=== PATIENT | male | born 1990 | race Caucasian/White ===

== ENCOUNTER 2018-01-28 09:08 | Inpatient (IN) | payer BC ==
[2018-01-28 09:15] VITALS: RESP 16
--- NOTE | 2018-01-28 10:27 | ED ---
Psych HPI - General Chief Complaint: Psychiatric Symptoms Stated Complaint: Mental Health Time Seen by Provider: 01/28/18 09:15 Source: patient, RN notes reviewed Mode of arrival: ambulatory Limitations: no limitations - History of Present Illness Initial Comments: This is a 27-year-old male presents emergency Department with chief complaint of depression, suicidal ideation. Patient states that he's been having ongoing depression more recently having suicidal ideation. He states that he went scheduled appointment with a counselor but never followed through. He has never express his feelings to anyone other than his . Patient is brought to emergency department by his for evaluation. Patient denies any illicit drug use no alcohol abuse. He does use alcohol on occasion. Patient has no physical complaints. Patient does not take any psychiatric medications and has NO KNOWN DRUG ALLERGIES. - Related Data Home Medications Medication Instructions Recorded Confirmed No Known Home Medications [No 01/28/18 01/28/18 Known Home Medications] Allergies Allergy/AdvReac Type Severity Reaction Status Date / Time No Known Allergies Allergy Verified 01/28/18 09:46 Review of Systems ROS Statement: Those systems with pertinent positive or pertinent negative responses have been documented in the HPI. ROS Other: All systems not noted in ROS Statement are negative. Past Medical History Past Medical History: No Reported History History of Any Multi-Drug Resistant Organisms: None Reported Past Surgical History: No Surgical Hx Reported Past Psychological History: No Psychological Hx Reported Smoking Status: Current every day smoker Past Alcohol Use History: Occasional Past Drug Use History: None Reported General Exam Limitations: no limitations General appearance: alert, in no apparent distress Head exam: Present: atraumatic, normocephalic, normal inspection Eye exam: Present: normal appearance, PERRL, EOMI. Absent: scleral icterus, conjunctival injection, periorbital swelling ENT exam: Present: normal exam, normal oropharynx, mucous membranes moist Neck exam: Present: normal inspection, full ROM. Absent: tenderness, meningismus, lymphadenopathy Respiratory exam: Present: normal lung sounds bilaterally. Absent: respiratory distress, wheezes, rales, rhonchi, stridor Cardiovascular Exam: Present: regular rate, normal rhythm, normal heart sounds. Absent: systolic murmur, diastolic murmur, rubs, gallop, clicks GI/Abdominal exam: Present: soft, normal bowel sounds. Absent: distended, tenderness, guarding, rebound, rigid Neurological exam: Present: alert, oriented X3, CN II-XII intact Psychiatric exam: Present: flat affect, other (Patient is tearful) Skin exam: Present: warm, dry, intact, normal color. Absent: rash Course Vital Signs 01/28/18 09:13 Temperature 98.3 F Pulse Rate 83 Respiratory 16 Rate Blood Pressure 145/72 O2 Sat by Pulse 98 Oximetry Disposition Clinical Impression: Depression, Suicidal ideation Disposition: ADMITTED IP TO THIS HOSP Referrals: None,Stated [Primary Care Provider] - 1-2 days
[2018-01-28] MEDS: NICOTINE 14MG/24HR PATCH TRANSDERM SCH (13:09)
[2018-01-28] MEDS ORDERED: MAGNESIUM HYDROXIDE 2,400 MG/10 ML CUP PO PRN (13:25)
[2018-01-28] MEDS ORDERED: ACETAMINOPHEN TAB 325 MG TAB PO PRN (13:25)
[2018-01-28] MEDS ORDERED: MAG HYDROX/AL HYDROX/SIMETH 30 ML CUP PO PRN (13:25)
[2018-01-28 13:49] VITALS: BMI 28.8
--- NOTE | 2018-01-28 21:58 | P.MDCNMH ---
History of Present Illness H&P Date: 01/28/18 Chief Complaint: medical management 27-year-old male with no significant past medical history presented to the hospital for psychiatric evaluation accompanied by his . Patient admits to no mental health problems , however he's been feeling depression in the only expressed dose emotions to his . Recently he has been having suicidal ideation without any plan. He admits to 1 attempts when he was teenager where he overdosed on drugs. Otherwise currently denies any medical complaints he denies any chest pain or trouble breathing denies any GI bleeding denies any abdominal pain nausea or vomiting denies any fevers or chills denies any upper respiratory infection like symptoms denies any changes in his urinary habits or bowel habits he denies any focal neurologic deficits. Review of Systems Pertinent positives as noted in HPI. All other systems were reviewed and are negative Past Medical History Past Medical History: No Reported History History of Any Multi-Drug Resistant Organisms: None Reported Past Surgical History: No Surgical Hx Reported Smoking Status: Current every day smoker - Past Family History family Additional Family Medical History / Comment(s): denies any family history of CAD or cancer Medications and Allergies Home Medications Medication Instructions Recorded Confirmed Type No Known Home Medications [No 01/28/18 01/28/18 History Known Home Medications] Allergies Allergy/AdvReac Type Severity Reaction Status Date / Time No Known Allergies Allergy Verified 01/28/18 09:46 Physical Exam Vitals: Vital Signs Temp Pulse Pulse Resp BP BP Pulse Ox 01/28/18 13:36 97.1 F L 61 16 123/73 99 01/28/18 12:09 97.8 F 90 16 142/78 98 01/28/18 09:13 98.3 F 83 16 145/72 98 Intake and Output 01/28/18 01/28/18 01/28/18 06:59 14:59 22:59 Other: Weight 93.6 kg Constitutional: No acute distress, conversant, pleasant Eyes: Anicteric sclerae, moist conjunctiva, no lid-lag Pupils equal round reactive to light ENMT: NC/AT Oropharynx clear, no erythema, or exudates Neck: Supple, FROM, no masses, or JVD No carotid bruits No thyromegaly Lungs: Clear to auscultation Clear to percussion Normal respiratory effort, no accessory muscle use Cardiovascular: Heart regular in rate and rhythm, No murmurs, gallops, or rubs No peripheral edema Abdominal: Soft Nontender, no guarding, rebound or rigidity Abdomen moving with respiration Normoactive bowel sounds No hepatomegaly, No splenomegaly No palpable mass No abdominal wall hernia noted Skin: Normal temperature, tone, texture, turgor No induration No subcutaneous nodules No rash, lesions No ulcers Extremities: No digital cyanosis No clubbing Pedal pulses intact and symmetrical Radial pulses intact and symmetrical No calf tenderness Psychiatric: Alert and oriented to person, place and time depressed affect fair judgment Neuro Muscles Strength 5/5 in all 4 extremities Sensation to light touch grossly present throughout No focal sensory deficits Lymphatics: no palpable cervical or supraclavicular , or inguinal lymph nodes Cranial Nerve Examination - Cranial Nerves Cranial Nerve II- Optic: Intact Cranial Nerve III- Oculomotor: Intact Cranial Nerve IV- Trochlear: Intact Cranial Nerve V- Trigeminal: Intact Cranial Nerve - Abducens: Intact Cranial Nerve VII- Facial: Intact Cranial Nerve VIII- Auditory: Intact Cranial Nerve IX- Glossopharyngeal: Intact Cranial Nerve X- Vagus: Intact Cranial Nerve XI- Accessory: Intact Cranial Nerve XII- Hypoglossal: Intact Assessment and Plan Assessment: 27 year old male with no significant past medical history , presented for psychiatric evaluation due to overwhelming depressed emotions and suicidal ideation, currently denies any medical complaints, medicine was consulted for medical management Plan: # suicidal ideation # depressed mood management per psych suicide precautions # tobacco smoking counseled to quit smoking nicotine replacement offered # low risk for DVT , ambulatory Thank you for allowing us to participate in the care of this patient. We will follow peripherally. Do not hesitate to contact us with questions. Someone can be reached from the [facility] hospitalist group at all hours of the day at [phone].
[2018-01-29 08:22] LABS: Basophils % (A) 1 %; Eosinophils # (A) 0.3 k/uL (0-0.7); Eosinophils % (A) 4 %; HCT 45.4 % (39.0-53.0); HGB 14.9 gm/dL (13.0-17.5); Lymphocytes % (A) 38 %; MCH 29.3 pg (25.0-35.0); MCHC 32.8 g/dL (31.0-37.0); MCV 89.6 fL (80.0-100.0); Mean Platelet Volume 7.9; Monocytes # (A) 0.4 k/uL (0-1.0); Monocytes % (A) 5 %; Neutrophils % (A) 51 %; Platelet Count 245 k/uL (150-450); RBC 5.07 m/uL (4.30-5.90); RDW 12.7 % (11.5-15.5); WBC 7.8 k/uL (3.8-10.6)
[2018-01-29] MEDS: NICOTINE 14MG/24HR PATCH TRANSDERM SCH (09:15)
[2018-01-29 09:54] LABS: ALT 27 U/L (21-72); AST 18 U/L (17-59); Albumin 4.4 g/dL (3.5-5.0); Alkaline Phosphatase 49 U/L (38-126); Anion Gap 10 mmol/L; Blood Urea Nitrogen 15 mg/dL (9-20); Calcium 9.8 mg/dL (8.4-10.2); Carbon Dioxide 30 mmol/L (22-30); Chloride 101 mmol/L (98-107); Glucose 83 mg/dL (74-99); Sodium 141 mmol/L (137-145); Total Bilirubin 0.5 mg/dL (0.2-1.3); Total Protein 6.8 g/dL (6.3-8.2)
--- NOTE | 2018-01-29 10:38 | P.HP ---
Psychiatric H&P - . H&P Date: 01/29/18 History & Physical: Identification Data: The patient is a 26-year-old male who presented voluntarily to the psychiatric unit with complaints of depression and suicidal ideation. History of Present Illness: He [facility] at the behest of his who is concerned about his well-being. He stated that he has felt depressed and has had intermittent thoughts of suicide. He told his that he does not want to live anymore and just "wants to ." He described having thoughts of suicide and thoughts to overdose on drugs. He does not own a gun and does not have access to firearms. He described many of the symptoms of depression including sadness, hopelessness , helplessness and worthlessness. He describes self-reproach, feelings of incapacity, fatigue and weakness, subjective tension and irritability, decreased appetite, decreased interest in sex and weight loss (his admission weight was 211 and the last time he would himself he was 230). In retrospect this he feels that he has been depressed "off and on" since he was a teenager. He describes one suicide attempt. He was approximate 18 years old where he overdosed on opioid pain medications. He took several pills with the intent to . He passed out to him when he woke he returned home. He never told anyone about his actions and did not received mental health treatment. The feelings depression are interrupted by periods lasting days no more than a few weeks where he feels normal and energetic. He describes sleeping less and feeling confident. He denied that during these periods friends or family have expressed concerned about his behavior, actions or decisions. He denied that he felt "overly confident" and did not describe behaviors suggestive of inflated self-esteem or grandiosity. He denied pressured speech, racing thoughts, distractibility or involvement in activities with high potential painful consequences. He described subjective anxiety and several somatic anxiety symptoms including tremor, indigestion, diarrhea, cramping, belching and headaches. He denied history of constipation or difficulty eating. He had one episode of increasing anxiety suggestive of panic attack but denied a history of panic attacks. He denied obsessions or compulsions. He denied that he uses drugs to get high, help him sleep or changes mood. He drinks 2-3 times per month. He denied that family or friends expressed concern to him about his alcohol use. He denied experiencing auditory, visual or olfactory hallucinations, ideas of reference, thought insertion, thought broadcasting or thought control. Past Psychiatric History: He denied a history of mental health treatment. Past Medical History: He denied a history of major medical problems Substance Use History: He began smoking marijuana in seventh grade. He began using opiate pain medications and 10th grade. He was never in a substance abuse treatment program. He quit using marijuana and opiate pain pills after the of his son. Legal History: He denied history of legal problems. Family Mental Health/Substance Use History: He has a grandmother, uncle and cousin who have a diagnosis of schizophrenia. Social History: His born to a single parent. He never knew his father. He stated that his brother essentially raised him. His mother worked and was "seldom available." He quit school in the 10th grade. He described a history of school problems with suspensions. He denied history of academic problems. He was not in special education. He did not obtain his GED. 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 He has been for 1 year. They have a 4- year-old child. She been working unskilled labor jobs. He lives with his and child. Mental Status Examination: He presented as a casually dressed and casually groomed young male who was pleasant on approach. He made intermittent , contact for most of the interview he looked towards the ground. However, he appeared to attend to the exam. He had earrings in some piercing but no prominent physical abnormalities. He had a depressed facial expression. He was alert and oriented to person, place and time. He showed psychomotor retardation but no abnormal movements. His speech was spontaneous with decreased rate, rhythm and volume. He had no articulation difficulties. His affect was depressed and not reactive. He described thoughts of suicide and wishes but denied intent or plan. He denied homicidal ideation. He has depressive cognitions including hopelessness, helplessness and worthlessness. He did not express obsessions, ruminations, phobias, ideas reference, paranoid ideation or delusional thoughts. His thinking was abstract and associations were coherent, logical and goal directed. He did not demonstrate clang associations, perseverations, neologisms or blocking. He denied hallucinations and did not appear to be responding to external stimuli. Global impression of intellect is average. He is aware of his depression and need for mental health treatment. Allergies Allergy/AdvReac Type Severity Reaction Status Date / Time No Known Allergies Allergy Verified 01/28/18 09:46 Vital Signs Temp 97.1 F L 01/28/18 13:36 Pulse 61 01/28/18 13:36 Resp 16 01/28/18 13:36 BP 123/73 01/28/18 13:36 Pulse Ox 99 01/28/18 13:36 Intake & Output 01/28/18 01/29/18 01/29/18 18:59 06:59 18:59 Weight 93.6 kg 01/29/18 10:32 Assessment and Plan Assessment: Impression: He is a 26-year-old male who presented with complaints of depression and suicidal ideation. He described feelings of depression had been present for many years beginning in adolescence, that fluctuates in intensity and by periods of no more than a few days to "a few weeks" of normal mood. He has many the symptoms of major depressive disorder uncomplicated by psychotic symptoms. He has a family history of schizophrenia. He has psychiatric and somatic anxiety symptoms but denied symptoms pattern suggestive of panic attack obsessions, compulsions or phobias. There is no evidence of psychotic symptoms. He would benefit from a trial of antidepressant as well as individual therapy. (1) Major depressive disorder, recurrent severe without psychotic features Current Visit: Yes Status: Acute Code(s): F33.2 - MAJOR DEPRESSV DISORDER, RECURRENT SEVERE W/O PSYCH FEATURES SNOMED Code(s): 62656049 (2) Persistent depressive disorder Current Visit: Yes Status: Acute Code(s): F34.1 - DYSTHYMIC DISORDER SNOMED Code(s): 92598132 (3) Suicidal ideation Current Visit: Yes Status: Acute Code(s): R45.851 - SUICIDAL IDEATIONS SNOMED Code(s): 9453138 Plan: Plan: Inpatient psychiatric hospitalization. This safety precautions. Consult medicine service for initial physical exam and medical history. farmworker general to complete initial psychosocial assessment. Begin Zoloft 50 mg daily with titration according to clinical response and tolerance. Encourage participation in therapeutic groups and activities. Obtain collateral information from family. Evaluate clinical status response to treatment on a daily basis.
[2018-01-29] MEDS: SERTRALINE 50 MG TAB PO SCH (11:00)
[2018-01-30 06:47] VITALS: BP 110/58; PULSE 66; TEMP 98.4
[2018-01-30] MEDS: SERTRALINE 50 MG TAB PO SCH (08:44)
[2018-01-30] MEDS: NICOTINE 14MG/24HR PATCH TRANSDERM SCH (08:44)
[2018-01-30 11:48] LABS: Amphetamine Screen,Urine Not Detected (NotDetected); Barbiturate Screen,Urine Not Detected (NotDetected); Benzodiazepines Screen,Urine Not Detected (NotDetected); Cocaine Screen,Urine Not Detected (NotDetected); Methadone Screen, Urine Not Detected (NotDetected); Opiate Screen,Urine Not Detected (NotDetected); Oxycodone Screen, Urine Not Detected (NotDetected); Phencyclidine Screen,Urine Not Detected (NotDetected); Tricyclic Antidepressant,Urine Not Detected (NotDetected); Urn Cannabinoid Scrn Not Detected (NotDetected)
[2018-01-30 11:50] LABS: Appearance,Urine Clear (Clear); Bilirubin,Urine Negative (Negative); Blood,Urine Negative (Negative); Color,Urine Yellow; Glucose,Urine (UA) Negative (Negative); Ketones,Urine Negative (Negative); Leukocyte Esterase,Urine Trace (Negative); Mucus,Urine Many /hpf; Nitrite,Urine Negative (Negative); Protein,Urine Trace (Negative); Specific Gravity,Urine 1.025 (1.001-1.035); Urobilinogen,Urine <2.0 mg/dL (<2.0); WBC,Urine 7 /hpf (0-5)
--- NOTE | 2018-01-30 14:31 | P.DS ---
Providers Date of admission: 01/28/18 11:55 Attending physician: Ryan Mendoza MD Consults: 01/28/18 13:25 Consult Physician Routine Consulting Provider: Jerzy Blancas Consult Reason/Comments: follow up H & P Do you want consulting provider notified?: Yes Primary care physician: Stated None - Discharge Diagnosis(es) (1) Major depressive disorder, recurrent severe without psychotic features Current Visit: Yes Status: Acute Priority: Medium (2) Persistent depressive disorder Current Visit: Yes Status: Chronic (3) Suicidal ideation Current Visit: Yes Status: Resolved Pertinent Studies: Patient is a 26-year-old male who presented to psychiatric unit voluntarily with complaints of depression and suicidal ideation. He came to the ER at the behest of his who was concerned about his mental health. He stated he felt depressed and had intermittent thoughts of suicide. He told his that he does not want to live anymore and just "wants to ." He described many symptoms of depression including sadness, hopelessness, helplessness and worthlessness. He describes self-reproach, feelings of incapacity, fatigue and weakness, subjective tension, irritability, decreased appetite, decreased interest in sex and weight loss. In retrospect, he is felt depressed "off and on" since he was a teenager. He describes one suicide attempt when he was 18 years old where he he overdosed on opiate pain medications. He did not tell his family or seek mental health medical treatment. He did not require emergency medical care. The feelings of depression are interrupted by periods lasting no more than a few weeks where he feels normal and energetic. He stopped using opiate pain pills and marijuana following the of his son. He lives with his and his 4-year-old son. He did not complete high school and did not obtained a GED. He works unskilled factory jobs. We admitted him to the psychiatric unit under the care of this singer songwriter. Provided a biopsychosocial assessment. The test consultant power house control room operator completed initial physical exam and medical history. The power house control room operator only diagnosis tobacco use disorder and recommended NicoDerm for nicotine withdrawal. We prescribed Zoloft 50 mg daily for the treatment of depression and anxiety. He denied side effects to the initial dose of the medication. He participated in therapeutic groups and activities. He posed no management problem and required no emergency medications for behavioral dyscontrol. On the second day of admission social sciences instructor met him and his . She expressed no concern about him returning home. She will assist him and keeping his appointments for outpatient mental health treatment. He plans to enroll in adult education and work towards obtaining his GED and entering [employer] here be better able to provide for his family. At the time of discharge he presented as casually dressed and casually groomed thin male who was pleasant on approach. He made eye contact and attended to interview. He had a low back and start's but no prominent physical abnormalities. He had a bright facial expression. He was alert and oriented to person, place and time. He showed slight psychomotor retardation but no abnormal movements. His speech was spontaneous with normal rate, rhythm and volume. His affect was depressed but reactive. He denied suicidal ideation or wishes. He denied homicidal ideation. He denied feeling hopeless, helpless and worthless. On the 10 point Likert scale he rated his depression as "3" and anxiety as "5". He did not express obsessions, ruminations, phobias , ideas reference, paranoid ideation or delusional thoughts. His thinking was abstract and associations were coherent and logical. He denied hallucinations and did not appear to be responding to internal stimuli. Patient Condition at Discharge: Stable Plan - Discharge Summary Discharge Rx Participant: No New Discharge Prescriptions: New Nicotine Polacrilex [Quit 2] 2 mg BUCCAL Q4-6H PRN #14 lozenge PRN Reason: tobacco cessation Sertraline [Zoloft] 50 mg PO DAILY #30 tab Discharge Medication List Nicotine Polacrilex [Quit 2] 2 mg BUCCAL Q4-6H PRN #14 lozenge 01/30/18 [Rx] Sertraline [Zoloft] 50 mg PO DAILY #30 tab 01/30/18 [Rx] Follow up Appointment(s)/Referral(s): [facility] - 02/06/18 9:30 am (paperwork at 09:30 appointment at 10:00 with Nathaly) None,Stated [Primary Care Provider] - 1-2 days Patient Instructions/Handouts: Depression (DC), Suicide Prevention for Adults ( DC) Activity/Diet/Wound Care/Special Instructions: Take all medications as ordered and keep your follow up appointment as scheduled. Do not drink alcohol or use any street drugs. Call the Crisis Line if needed . Discharge Disposition: HOME SELF-CARE
== END 2018-01-30 14:10 | disposition home or self-care (01) | DRG 885 ==
LOC: EC 09:08 → 3MHU 11:55
PROVIDERS: ADMIT Psychiatry & Neurology Psychiatry; ATTEND Psychiatry & Neurology Psychiatry
DX: F33.2 Major depressive disorder, recurrent severe without psychotic features (principal); R45.851 Suicidal ideations; F17.200 Nicotine dependence, unspecified, uncomplicated; F34.1 Dysthymic disorder; F41.9 Anxiety disorder, unspecified; Z91.5 Personal history of self-harm; Z71.6 Tobacco abuse counseling; Z81.8 Family history of other mental and behavioral disorders
CPT/HCPCS: 80053; 80306; 81001; 82075; 84443; 85025; 99285

== ENCOUNTER 2021-03-17 02:53 | Emergency (ER) | payer BC, OTHER ==
[2021-03-17 03:07] VITALS: BP 146/87; PULSE 86; RESP 22; TEMP 98.9
--- NOTE | 2021-03-17 03:16 | ED ---
Upper Extremity HPI - General Chief Complaint: Extremity Injury, Upper Stated Complaint: Rt hand injury - [facility] Time Seen by Provider: 03/17/21 03:04 Source: patient, RN notes reviewed, old records reviewed Mode of arrival: ambulatory Limitations: no limitations - History of Present Illness Initial Comments: This is a 30-year-old male DF for evaluation today presents for evaluation of right hand pain. Patient is having severe right hand pain and swelling after work related injury. Patient dropped a heavy metal tubes on his right hand. Patient has no other injuries noted denies drugs or alcohol. Again injury is work-related MD Complaint: Injury to:: right -: hour(s) Other Extremity Injury: Hand: Right Other Injuries: none Handedness: right Place: work Severity scale (1-10): 6 Improves With: none Worsens With: none Context: direct blow Associated Symptoms: denies other symptoms - Related Data Previous Rx's Medication Instructions Recorded Nicotine Polacrilex [Quit 2] 2 mg BUCCAL Q4-6H PRN #14 lozenge 01/30/18 Sertraline [Zoloft] 50 mg PO DAILY #30 tab 01/30/18 Allergies Allergy/AdvReac Type Severity Reaction Status Date / Time No Known Allergies Allergy Verified 03/17/21 03:06 Review of Systems ROS Statement: Those systems with pertinent positive or pertinent negative responses have been documented in the HPI. ROS Other: All systems not noted in ROS Statement are negative. Past Medical History Past Medical History: No Reported History History of Any Multi-Drug Resistant Organisms: None Reported Past Surgical History: No Surgical Hx Reported Past Psychological History: Depression Smoking Status: Former smoker Past Alcohol Use History: Occasional Past Drug Use History: None Reported - Past Family History family Additional Family Medical History / Comment(s): denies any family history of CAD or cancer General Exam Limitations: no limitations General appearance: alert, in no apparent distress Head exam: Present: atraumatic, normocephalic, normal inspection Eye exam: Present: normal appearance, PERRL, EOMI. Absent: scleral icterus, conjunctival injection, periorbital swelling ENT exam: Present: normal exam, mucous membranes moist Neck exam: Present: normal inspection. Absent: tenderness, meningismus, lymphadenopathy Respiratory exam: Present: normal lung sounds bilaterally. Absent: respiratory distress, wheezes, rales, rhonchi, stridor Cardiovascular Exam: Present: regular rate, normal rhythm, normal heart sounds. Absent: systolic murmur, diastolic murmur, rubs, gallop, clicks GI/Abdominal exam: Present: soft, normal bowel sounds. Absent: distended, tenderness, guarding, rebound, rigid Extremities exam: Present: normal inspection, full ROM, normal capillary refill, other (Right hand fifth metatarsal swelling and pain). Absent: tenderness, pedal edema, joint swelling, calf tenderness Back exam: Present: normal inspection Neurological exam: Present: alert, oriented X3, CN II-XII intact Psychiatric exam: Present: normal affect, normal mood Skin exam: Present: warm, dry, intact, normal color. Absent: rash Course Vital Signs 03/17/21 03:02 Temperature 98.9 F Pulse Rate 86 Respiratory 22 Rate Blood Pressure 146/87 O2 Sat by Pulse 99 Oximetry - Reevaluation(s) Reevaluation #1: 03/17/21 03:27 Medical record is reviewed Reevaluation #2: 03/17/21 04:02 Patient informed of results and questions answered Procedures - Orthopedic Splinting/Casting Injury #1 Side: right Upper Extremity Injury Location: hand Upper Extremity Immobilizer: volar splint Medical Decision Making - Medical Decision Making 30 male to the ER for evaluation patient has fifth metatarsal fracture right hand, patient placed in splint and can be discharged home - Radiology Data Radiology results: report reviewed (X-ray right hand is positive for fifth metatarsal fracture), image reviewed Disposition Clinical Impression: Fracture of fifth metacarpal bone of right hand Disposition: HOME SELF-CARE Condition: Good Instructions (If sedation given, give patient instructions): Hand Fracture (ED) Is patient prescribed a controlled substance at d/c from ED?: No Referrals: Angie Cottrell MD [Primary Care Provider] - 1-2 days
[2021-03-17] MEDS ORDERED: IBUPROFEN 800 MG TAB PO STA (03:21)
[2021-03-17] MEDS ORDERED: ACETAMINOPHEN TAB 500 MG TAB PO STA (03:21)
--- NOTE | 2021-03-17 03:43 | XR ---
EXAMINATION TYPE: XR hand complete RT DATE OF EXAM: 03/17/2021 COMPARISON: NONE HISTORY: Pain TECHNIQUE: 3 views FINDINGS: There is acute nondisplaced transverse fracture of the mid shaft of the fifth metacarpal. T here is slight posterior angulation at the fracture site. There is apparent old ununited ulnar styloi d process fracture. The fingers are intact. IMPRESSION: Acute fracture of the mid shaft of the fifth metacarpal.
== END 2021-03-17 04:23 | disposition home or self-care (01) ==
LOC: EC 02:53
DX: S62.356A Nondisplaced fracture of shaft of fifth metacarpal bone, right hand, initial encounter for closed fracture (principal); F32.9 Major depressive disorder, single episode, unspecified; Z87.891 Personal history of nicotine dependence; Z79.899 Other long term (current) drug therapy; W20.8XXA Other cause of strike by thrown, projected or falling object, initial encounter; Y99.0 Civilian activity done for income or pay
CPT/HCPCS: 99283

== ENCOUNTER 2021-04-12 10:37 | Day surgery (SDC) | payer BC, OTHER ==
[2021-04-07 10:58] VITALS: BMI 32.1
[~2021-04-12 10:37] MED LIST: DEXAMETHASONE SOD PHOSPHATE 4 MG/ML 1 ML VIAL IV ONE; HYDROmorphone 0.5 MG/0.5 ML SYRINGE IVP PRN; LACTATED RINGERS 1,000 ML IV SCH; LIDOCAINE 1% (10MG/ML) FOR IV START INTRADERMA PRN; MIDAZOLAM 2 MG/2 ML VIAL IV PRN; ONDANSETRON 4 MG/2 ML VIAL IVP ONE
[2021-04-12 11:00] VITALS: RESP 16
[2021-04-12] MEDS ORDERED: PROPOFOL 10 MG/ML 20 ML VIAL IV ONE (12:08)
[2021-04-12] MEDS ORDERED: LIDOCAINE 1% INJ 10MG/ML (20 ML MDV) ONE (12:08)
[2021-04-12] MEDS ORDERED: MIDAZOLAM 2 MG/2 ML VIAL ONE (12:08)
[2021-04-12] MEDS ORDERED: fentaNYL (PF) 50 MCG/ML 2 ML AMP ONE (12:08)
[2021-04-12] MEDS ORDERED: HYDROmorphone (PF) 1 MG/ML ONE (12:08)
[2021-04-12] MEDS ORDERED: BUPIVACAINE (PF) 0.5% 30 ML VIAL SQ ONE ×2 (12:38→13:31)
[2021-04-12 13:56] VITALS: TEMP 96.8
[2021-04-12 15:11] VITALS: BP 133/83; PULSE 98
--- NOTE | 2021-04-12 15:15 | P.PN ---
Progress Note - Text Progress Note Date: 04/12/21 Brief Op Note: Date: 04/12/21 Surgeon: Sharath Akbar DO Pre-operative Diagnosis: Displaced right 5th metacarpal shaft fracture Post-operative Diagnosis: Same Procedure: 1.) Open reduction internal fixation right 5th metacarpal shaft fracture Anesthesia: General LMA. Local block performed at end of case with 10cc of 0.5% bupivicaine. Implants: 1.) Depuy/Synthes 2.0 mm VA locking plate Tourniquet Time: 59 minutes Complications: None EBL: <5cc Disposition: Stable to PACU Sharath Akbar DO Orthopedic Hand/Upper Extremity Surgeon
--- NOTE | 2021-04-12 15:49 | P.OP ---
Date of Procedure: 04/12/21 Preoperative Diagnosis: Right 5th metacarpal shaft fracture, displaced. Postoperative Diagnosis: Right 5th metacarpal shaft fracture, displaced. Procedure(s) Performed: Open reduction internal fixation of right displaced fifth metacarpal shaft fracture Implants: Depuy Synthes 2.0mm VA locking plate. Straight Anesthesia: GETA Surgeon: Sharath Akbar Estimated Blood Loss (ml): 10 Condition: stable Disposition: PACU Description of Procedure: This is a 30-year-old right-hand dominant male who presented with a subacute displaced and angulated right fifth metacarpal shaft fracture that occurred at work 3 weeks prior to initial follow-up. Due to the angulation and displacement of his fracture, surgical intervention was discussed and agreed upon. Risks and benefits of surgery including bleeding, damage to surrounding tissue possible need for further surgery, possibility of irritable hardware, infection, and risks of anesthesia were discussed and the patient agreed to go forth with surgical intervention. Preoperative H&P and consent were reviewed and updated in the preoperative area. The correct operative site was marked in the preoperative area by myself. Operative narrative: The patient was brought back by the department of anesthesia and was kept on the stretcher and a hand table was brought to the side of the operative extremity. The patient was then drifted off to sleep by the department of anesthesia under a general anesthetic with use of an LMA. The right upper extremity was then prepped and draped in normal sterile fashion. Preoperative timeout was performed indicating the correct patient, procedure, laterality and all in the room were in agreement. 2 g of Ancef were given prior to skin incision. Right upper extremity was exsanguinated with an esmarch and the tourniquet was inflated to 250 mmHg. A longitudinal incision overlying the right fifth metacarpal shaft dorsally was made. Blunt dissection was performed through subcutaneous tissues with tenotomy scissors was performed taking care to preserve branches of the dorsal sensory branch of the ulnar nerve, which were identified and protected. Bovie cautery was utilized to cauterize dorsal veins for hemostatic control. The dorsal prominence was then palpated and a 15 blade scalpel was used to sharply dissect the periosteum and newly formed fibrotic and callus tissue at the transverse fracture site in line with the length of the metacarpal shaft. Fracture edges were then debrided with a rongeur, due to the subacute nature of the fracture the cortical edges appeared to be rounded off due to callous formation starting to form. After debridement was completed reduction of the fracture was performed to correct length alignment and rotation into acceptable position. This was confirmed on fluoroscopy. A synthes 2.0mm VA straight plate was then cut to appropriate length to obtain at least 4 cortices on each side of the fracture site which ended up being a 6 hole length. The plate was then held to bone and the hole closest to the fracture site in the distal portion of the plate was drilled bi-cortically slightly eccentric and filled with appropriate screw length. The same was performed for the proximal hole closest to the fracture site. Fluoroscopy was then used to confirm accurate placement of the plate on bone to assess reduction which was acceptable. Overall alignment and finger cascade with passive extension of the wrist and flexion of fingers was checked to check rotation and a normal cascade of fingers was appreciated with no crossover visualized. The remainder of the proximal and distal holes were then drilled and filled with appropriate screw lengths confirmed on X-Ray. The wound was then irrigated with sterile saline. Several interrupted 4-0 vicryl sutures were used to close the periosteum overlying the plate. Subcutaneous closure was performed with 4-0 vicryl and skin closure was performed with 4-0 nylon in a horizontal mattress fashion. 10cc of 0.5% bupivicaine was utilized to perform an ulnar nerve block which included the dorsal sensory region of the ulnar nerve. Sterile dressing consisting of adaptic, 4x4s, cast padding, and a plaster ulnar gutter splint was applied. Tourniquet was let down at 59 minutes and the hand was well perfused immediately. The patient was then awoken by the department of anesthesia and transferred to PACU in stable condition. -Sharath Akbar DO Orthopedic Hand/Upper Extremity Surgeon
== END 2021-04-12 15:24 | disposition home or self-care (01) ==
LOC: OR 10:37
PROVIDERS: ATTEND Orthopaedic Surgery Hand Surgery
DX: S62.326A Displaced fracture of shaft of fifth metacarpal bone, right hand, initial encounter for closed fracture (principal); X58.XXXA Exposure to other specified factors, initial encounter; Y92.69 Other specified industrial and construction area as the place of occurrence of the external cause
CPT/HCPCS: 26615; J1100; J0690; J2405; J1170

== ENCOUNTER 2022-05-23 12:39 | Inpatient (IN) | payer BC ==
[2022-05-23] MEDS ORDERED: MAG HYDROX/AL HYDROX/SIMETH 30 ML CUP PO PRN (13:15)
[2022-05-23] MEDS ORDERED: LORazepam 1 MG TAB PO PRN (13:15)
[2022-05-23] MEDS ORDERED: ACETAMINOPHEN TAB 325 MG TAB PO PRN (13:15)
[2022-05-23] MEDS ORDERED: MAGNESIUM HYDROXIDE 2,400 MG/10 ML CUP PO PRN (13:15)
[2022-05-23] MEDS ORDERED: LORazepam 2 MG/ML INJ IM PRN (13:21)
[2022-05-23] MEDS ORDERED: haloperidoL 5 MG TAB PO PRN (13:22)
[2022-05-23] MEDS ORDERED: HALOPERIDOL LACTATE 5 MG/ML 1 ML VIAL IM PRN (13:23)
[2022-05-23] MEDS ORDERED: LORazepam 1 MG/0.5 ML VIAL IM PRN (13:28)
--- NOTE | 2022-05-23 16:38 | P.PN ---
Progress Note - Text Progress Note Date: 05/23/22 I received a text message for medical consult on Gómez Osuna on 05/23/2022 at 3:30 pm I came to see patient at 5:00 pm however chart is completly empty, there is no ER note, no Psychiatry note, no labs and no testing results I will come back in am to complete H & P in the meantime I am available speech communication instructor for any urgent needs for this patient
[2022-05-23 17:25] VITALS: RESP 16
[2022-05-24] MEDS: NICOTINE 14MG/24HR PATCH TRANSDERM SCH (09:03)
--- NOTE | 2022-05-24 10:14 | P.HPIM ---
History of Present Illness H&P Date: 05/24/22 Gómez Ellsworth, is a 31-year-old male currently admitted to the psychiatry unit, after presenting to emergency room after a suicidal attempt. Apparently patient had a fight with his , he took several Xanax pills he also drank some whiskey and took some liquid Tylenol, patient stated that he has been having suicidal ideation, he was admitted with similar complaint in January 2018, he also had a suicidal attempt as a teenager with a medication overdose. Medically patient denies any complaints at this time there is no fever or chills no headache or dizziness no chest pain no shortness of breath no cough no nausea or vomiting no abdominal pain no diarrhea no blood in the stools no burning with urination no frequency no urgency and no hematuria, there is no weakness or numbness in any of the extremities, there is no change in vision speech or gait. Patient had labs and computed tomography scan of the brain done at an outside facility on 05/22/2022, base were reviewed, urine toxicology screen was positive for benzodiazepine, otherwise results were within normal limits. Past Medical History Past Medical History: No Reported History Additional Past Medical History / Comment(s): rt hand injury,hx rt wrist fx approx 14 yrs ago History of Any Multi-Drug Resistant Organisms: None Reported Past Surgical History: No Surgical Hx Reported Additional Past Surgical History / Comment(s): closed reduction rt wrist Past Anesthesia/Blood Transfusion Reactions: No Reported Reaction Smoking Status: Current every day smoker, Vaper - Past Family History family Additional Family Medical History / Comment(s): denies any family history of CAD or cancer Medications and Allergies Home Medications Medication Instructions Recorded Confirmed Type Venlafaxine HCl ER [Effexor Xr] 75 mg PO QAM 04/07/21 04/12/21 History ALPRAZolam [Xanax] 0.25 mg PO HS 04/12/21 04/12/21 History oxyCODONE HCL/ACETAMINOPHEN 1 tab PO Q4HR PRN 3 Days #18 tab 04/12/21 Rx [Percocet 5-325 mg] Allergies Allergy/AdvReac Type Severity Reaction Status Date / Time No Known Allergies Allergy Verified 04/07/21 10:46 Physical Exam Vitals: Vital Signs Temp Pulse Resp BP Pulse Ox 05/24/22 06:37 97.4 F L 82 16 125/72 05/23/22 12:55 97.5 F L 98 16 138/80 96 Intake and Output 05/23/22 05/24/22 05/24/22 22:59 06:59 14:59 Other: Weight 89.8 kg In general patient is alert and oriented x 3 in no distress HEENT head normocephalic and atraumatic Neck is supple no JVD no goiter no lymphadenopathy no carotid bruit Chest examination is clear to auscultation no crackles no wheezing Cardiac exam reveals regular heart sounds S1 and S2 no gallops no murmurs Abdomen is soft nontender no organomegaly with normal bowel sounds Extremity exam reveals no edema no cyanosis or clubbing Neurological examination reveals no gross focal deficits Assessment and Plan Plan: 1. Suicidal ideation with suicidal attempt, by taking medication overdose. 2. Evidence of major depression. Management per primary psychiatry team. 3. Tobacco abuse counseled regarding smoking cessation 4. Patient is not on any home medications 5. No need for DVT prophylaxis patient is low risk and he is ambulating without any difficulty. Chart reviewed, both [facility] chart, and the ER records from outside facility on 05/22/2022, will follow closely during this admission
[2022-05-24 10:18] LABS: Basophils % (A) 1 %; Eosinophils # (A) 0.2 k/uL (0-0.7); Eosinophils % (A) 3 %; HCT 41.3 % (39.0-53.0); HGB 13.2 gm/dL (13.0-17.5); Lymphocytes # (A) 1.5 k/uL (1.0-4.8); Lymphocytes % (A) 22 %; MCH 28.6 pg (25.0-35.0); MCV 89.3 fL (80.0-100.0); Mean Platelet Volume 8.9; Monocytes # (A) 0.3 k/uL (0-1.0); Monocytes % (A) 4 %; Neutrophils # (A) 4.7 k/uL (1.3-7.7); Neutrophils % (A) 69 %; Platelet Count 252 k/uL (150-450); RBC 4.63 m/uL (4.30-5.90); RDW 12.7 % (11.5-15.5); WBC 6.9 k/uL (3.8-10.6)
[2022-05-24 10:26] LABS: ALT 17 U/L (4-49); AST 22 U/L (17-59); African American GFR (CKD) >90 (>60 ml/min/1.73 sqM); Albumin 4.5 g/dL (3.5-5.0); Alkaline Phosphatase 74 U/L (38-126); Anion Gap 14 mmol/L; Blood Urea Nitrogen 15 mg/dL (9-20); Calcium 9.4 mg/dL (8.4-10.2); Carbon Dioxide 23 mmol/L (22-30); Chloride 104 mmol/L (98-107); Glucose 75 mg/dL (74-99); Non-African American GFR(CKD) >90 (>60 ml/min/1.73 sqM); Potassium 4.1 mmol/L (3.5-5.1); Sodium 141 mmol/L (137-145); Total Bilirubin 0.5 mg/dL (0.2-1.3); Total Protein 7.1 g/dL (6.3-8.2)
--- NOTE | 2022-05-24 11:58 | P.HP ---
Psychiatric H&P - . H&P Date: 05/24/22 History & Physical: Allergies Allergy/AdvReac Type Severity Reaction Status Date / Time No Known Allergies Allergy Verified 04/07/21 10:46 Vital Signs Temp 97.4 F L 05/24/22 06:37 Pulse 82 05/24/22 06:37 Resp 16 05/24/22 06:37 BP 125/72 05/24/22 06:37 Pulse Ox 96 05/23/22 12:55 FiO2 Intake & Output 05/23/22 05/24/22 05/24/22 18:59 06:59 18:59 Weight 89.8 kg Laboratory Last Values WBC 6.9 k/uL (3.8-10.6) 05/24/22 09:25 RBC 4.63 m/uL (4.30-5.90) 05/24/22 09:25 Hgb 13.2 gm/dL (13.0-17.5) 05/24/22 09:25 Hct 41.3 % (39.0-53.0) 05/24/22 09:25 MCV 89.3 fL (80.0-100.0) 05/24/22 09:25 MCH 28.6 pg (25.0-35.0) 05/24/22 09:25 MCHC 32.0 g/dL (31.0-37.0) 05/24/22 09:25 RDW 12.7 % (11.5-15.5) 05/24/22 09:25 Plt Count 252 k/uL (150-450) 05/24/22 09:25 MPV 8.9 05/24/22 09:25 Neutrophils % 69 % 05/24/22 09:25 Lymphocytes % 22 % 05/24/22 09:25 Monocytes % 4 % 05/24/22 09:25 Eosinophils % 3 % 05/24/22 09:25 Basophils % 1 % 05/24/22 09:25 Neutrophils # 4.7 k/uL (1.3-7.7) 05/24/22 09:25 Lymphocytes # 1.5 k/uL (1.0-4.8) 05/24/22 09:25 Monocytes # 0.3 k/uL (0-1.0) 05/24/22 09:25 Eosinophils # 0.2 k/uL (0-0.7) 05/24/22 09:25 Basophils # 0.0 k/uL (0-0.2) 05/24/22 09:25 Sodium 141 mmol/L (137-145) 05/24/22 09:25 Potassium 4.1 mmol/L (3.5-5.1) 05/24/22 09:25 Chloride 104 mmol/L (98-107) 05/24/22 09:25 Carbon Dioxide 23 mmol/L (22-30) 05/24/22 09:25 Anion Gap 14 mmol/L 05/24/22 09:25 BUN 15 mg/dL (9-20) 05/24/22 09:25 Creatinine 0.67 mg/dL (0.66-1.25) 05/24/22 09:25 Est GFR (CKD-EPI)AfAm >90 (>60 ml/min/1.73 sqM) 05/24/22 09:25 Est GFR (CKD-EPI)NonAf >90 (>60 ml/min/1.73 sqM) 05/24/22 09:25 Glucose 75 mg/dL (74-99) 05/24/22 09:25 Calcium 9.4 mg/dL (8.4-10.2) 05/24/22 09:25 Total Bilirubin 0.5 mg/dL (0.2-1.3) 05/24/22 09:25 AST 22 U/L (17-59) 05/24/22 09:25 ALT 17 U/L (4-49) 05/24/22 09:25 Alkaline Phosphatase 74 U/L (38-126) 05/24/22 09:25 Total Protein 7.1 g/dL (6.3-8.2) 05/24/22 09:25 Albumin 4.5 g/dL (3.5-5.0) 05/24/22 09:25 05/24/22 11:52 IDENTIFYING DATA: Patient is a 31-year-old male who currently lives alone in a house, is currently going through a divorce, has 2 kids. 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 HPI: Patient presented to the hospital as a transfer from [facility]. Patient apparently overdosed on Xanax and also children's Tylenol according to petition. Patient was brought to the hospital involuntarily. Patient was seen lying in his bed today and appeared to be disheveled in appearance. He was agreeable to speak to news writer in the office. He states that he "overdosed on Xanax and a bunch of other stuff". He was fairly vague and evasive during conversation. He had poor eye contact. Was concrete and monotone. He did appear to be disheveled in appearance. He claims that he also got drunk on liquor that night when he did it. He states that he doesn't usually drink alcohol. He states that he "snapped on life I guess". He was fairly guarded about what is going on with his life but did mention that he is going through a divorce which has been going on for about 2 months now. He states that his car recently broke down and hasn't been fixed yet. He states that he is feeling depressed hopeless and worthless at this time. He states that he is not having any anxiety and feels "numb". He states that he has been sleeping more, claims that his appetite is poor. Denying any paranoia at this time. Patient denies any suicidal or homicidal ideations intent or plan. At this time patient denies any auditory or visual hallucinations. Patient denies any flight of ideas racing thoughts and increased in goal directed behavior. Patient admits to using cigarettes daily and alcohol occasionally. PAST PSYCHIATRIC HISTORY: Patient states that he has a history of depression. Patient claims that he is currently on Effexor which is prescribed by his PCP. He states that previously he was on Zoloft. He states that he was previously psychiatrically hospitalized in 2018. Patient denies any psychiatric outpatient follow-up. Patient denies any history of suicide attempts in the past. PMH: As per medical H&P ALLERGIES: as per EMR CHEMICAL DEPENDENCY HISTORY: as per HPI FAMILY PSYCHIATRIC/SUBSTANCE USE HISTORY: denies SOCIAL HISTORY: Patient was born and raised in [place] [facility] [place]. He states that he completed up to ninth grade in school. He states it is currently however is going through divorce. He states he lives alone in a house. He has 2 kids. 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 He denies any legal history. MENTAL STATUS EXAM: General Appearance: Patient appears to be disheveled in appearance, dreads in his hair, stated age is alert, directable, and attempts to cooperate. Patient appears to have poor hygiene and grooming. Behavior: Patient is seated without any agitated behavior. Poor eye contact. Speech: Patient's speech is fluent and nonpressured. [place] and monotone. Mood/Affect: Patient reports their mood is "numb" and also endorsing depression, affect is congruent and flat Suicidality/Homicidality: Patient denies having any homicidal ideation intent or plan. Denies any suicidal ideations intent or plan Perceptions: Patient denies any visual hallucinations and denies any auditory hallucinations Though content/process: [place], paucity of content. He evasive and guarded. Memory and concentration: AOX3, grossly intact for the purposes of this session. Can spell "WORLD" backwards Judgment and insight: poor STRENGTHS/WEAKNESSES: strength is that patient is resilient. Weakness is that patient has poor judgment and is impulsive INTELLECT: average IMPRESSIONS: Major depressive disorder, recurrent, severe, without psychotic features Overdose of medications Nicotine dependence Alcohol abuse PLAN: -Patient is admitted under voluntary status to [facility] for stabilization of psychiatric symptoms and safety. Patient has signed adult voluntary form and medication consent and is placed in patient's chart. -Medications : Will start patient on Effexor XR 75 mg daily for mood/anxiety. Patient was offered other antidepressants however once or remain on the same medication, will likely titrate up during hospitalization. -Ativan and Haldol PRN for agitation/aggression -[facility] protocol with Ativan PRN for ETOH withdrawal -Patient was counselled on substance abuse and desired to cut back on use -Patient was informed of the risks, benefits and side effects of the medication and patient verbally consented to taking the medications. Patient signed med consent form and was placed in chart. -Internal Medicine consult to perform medical evaluation and physical. -NRT - nicotine patch -SW on board for discharge planning. Encourage patient to participate in groups to work on coping skills.
[2022-05-24] MEDS: VENLAFAXINE HCL ER 75 MG CAP PO SCH (13:13)
[2022-05-24 15:02] LABS: LDL Cholesterol,Calculated 54.3 mg/dL (0.0-131.0); VLDL Calculation 19.94 mg/dL (5.00-40.00)
[2022-05-25] MEDS: NICOTINE 14MG/24HR PATCH TRANSDERM SCH (08:17)
[2022-05-25] MEDS: VENLAFAXINE HCL ER 75 MG CAP PO SCH (08:17)
--- NOTE | 2022-05-25 09:31 | P.PN ---
Progress Note - Text Progress Note Date: 05/25/22 Interval History: Patient was seen sitting in a group today and was directable and agreeable to speak with science writer in the office. Patient claims that he feels a bit better with regards to his mood and also has anxiety today. He claims that he "broke a lot of stuff" at his house and states that he is regretful for it. He claims that he is tolerating the medications fairly well. We spoke about increasing his dose of Effexor over the weekend which she is agreeable to. He states that he is trying to go to groups and participate as best as he can. He continues to have superficial insight and limited judgment. Claims that he slept okay last night. At this time patient denies any suicidal or homical ideations, intent or plan. Patient denies any auditory, visual hallucinations and denies any paranoia or delusions. Patient denies any side effects from the medications and has been compliant with meds. Mental Status Exam: General Appearance: Patient appears to be disheveled in appearance, dreads in his hair, stated age is alert, directable, and attempts to cooperate. Patient appears to have mildly improving hygiene and grooming. Behavior: Patient is seated without any agitated behavior. Improving eye contact. Speech: Patient's speech is fluent and nonpressured. [place] and monotone. Mood/Affect: Patient reports their mood is "a bit better" and also endorsing depression, affect is congruent and improving Suicidality/Homicidality: Patient denies having any homicidal ideation intent or plan. Denies any suicidal ideations intent or plan Perceptions: Patient denies any visual hallucinations and denies any auditory hallucinations Though content/process: [place], less guarded and evasive today. Logical. Memory and concentration: AOX3, grossly intact for the purposes of this session Judgment and insight: poor, improving mildly IMPRESSIONS: Major depressive disorder, recurrent, severe, without psychotic features Overdose of medications Nicotine dependence Alcohol abuse Plan: -Patient continues to meet criteria for inpatient psychiatric admission for symptom stabilization and safety. Patient has signed adult voluntary form and medication consent and was placed in patient's chart. -Medications: Increase Effexor XR to 150 mg daily for mood/anxiety. -[facility] protocol with Ativan PRN for ETOH withdrawal -When necessary Ativan and Haldol for agitation/aggression. -NRT - nicotine patch -SW on board for discharge planning. Encouraged the patient to participate in milieu. Likely discharge Saturday if patient continues to improve over the weekend.
--- NOTE | 2022-05-25 12:51 | P.PN ---
Progress Note - Text Progress Note Date: 05/25/22 Per patient request will discontinue nicotine patch and order nicotine gum instead
[2022-05-25] MEDS: NICOTINE GUM (POLACRILEX) 2 MG GUM BUCCAL PRN ×2 (14:45→19:53)
[2022-05-26] MEDS: VENLAFAXINE HCL ER 150 MG CAP PO SCH (08:08)
[2022-05-26] MEDS: NICOTINE GUM (POLACRILEX) 2 MG GUM BUCCAL PRN ×3 (08:51→18:40)
[2022-05-27] MEDS: NICOTINE GUM (POLACRILEX) 2 MG GUM BUCCAL PRN ×3 (08:56→20:48)
[2022-05-27] MEDS: VENLAFAXINE HCL ER 150 MG CAP PO SCH (08:56)
--- NOTE | 2022-05-27 14:00 | P.PN ---
Progress Note - Text Progress Note Date: 05/26/22 Interval history: Patient was seen reading his book in the hallway and was directable and agreeable to speak with life insurance underwriter. He reports good mood, sleep and appetite. At this time patient, denies any suicidal or homicidal ideation, intent or plan, and denies any auditory or visual hallucinations. Patient denies any side effects from the medications and has been compliant with meds. Mental status exam: General Appearance: Patient appears to be stated age, has tattoos on face and arms. Behavior: No agitated behavior. Patient is calm and directable. Speech: Patient's speech is fluent and non-pressured. Mood/Affect: Mood is improving mildly, affect is congruent and constricted. Suicidality/Homicidality: Patient denies having any suicidal or homicidal ideation intent or plan. Perceptions: Patient denies any auditory or visual hallucinations. Though content/process: There is no evidence of any delusional thought content and thought process is linear and goal-directed. Memory and concentration: AOX3, grossly intact for the purposes of this session Judgment and insight: improving mildly Assessment/Plan: Continue with current diagnosis. Patient continues to meet criteria for inpatient psychiatric admission for symptom stabilization and safety. Patient will be maintained on current psychotropic medication regimen. Monitor for medication compliance and for any psychotropic medication side effects. Will continue to monitor ongoing response to treatment. Encouraged participation in milieu.
--- NOTE | 2022-05-27 14:03 | P.PN ---
Progress Note - Text Progress Note Date: 05/27/22 Interval history: Patient stated to be seen today. He reports good mood and inquires about discharge. We discussed possible discharge tomorrow if he continues to stabilize. He appears anxious and is tearful, states he misses his kids and is looking forward to discharge and returning to work. At this time, patient denies any suicidal or homicidal ideation, intent or plan, and denies any auditory or visual hallucinations. Patient denies any side effects from the medications and has been compliant with meds. Mental status exam: General Appearance: Patient appears to be stated age, has tattoos on face and arms. Behavior: No agitated behavior. Patient is calm and directable. Speech: Patient's speech is fluent and non-pressured. Mood/Affect: Mood is "good", affect is anxious/tearful. Suicidality/Homicidality: Patient denies having any suicidal or homicidal ideation intent or plan. Perceptions: Patient denies any auditory or visual hallucinations. Though content/process: There is no evidence of any delusional thought content and thought process is linear and goal-directed. Memory and concentration: AOX3, grossly intact for the purposes of this session Judgment and insight: improving mildly Assessment/Plan: Continue with current diagnosis. Patient continues to meet criteria for inpatient psychiatric admission for symptom stabilization and safety. Patient will be maintained on current psychotropic medication regimen. Monitor for medication compliance and for any psychotropic medication side effects. Will continue to monitor ongoing response to treatment. Encouraged participation in milieu. Plan to discharge on Saturday if continues to stabilize.
[2022-05-28 07:17] VITALS: BP 125/68; PULSE 73; TEMP 98
[2022-05-28] MEDS: VENLAFAXINE HCL ER 150 MG CAP PO SCH (08:05)
--- NOTE | 2022-05-28 13:59 | P.DS ---
Providers Date of admission: 05/23/22 12:39 Admission HPI: Admission note was completed by Dr. Zuniga: "IDENTIFYING DATA: Patient is a 31-year-old male who currently lives alone in a house, is currently going through a divorce, has 2 kids. 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 HPI: Patient presented to the hospital as a transfer from [facility]. Patient apparently overdosed on Xanax and also children's Tylenol according to petition. Patient was brought to the hospital involuntarily. Patient was seen lying in his bed today and appeared to be disheveled in appearance. He was agreeable to speak to television writer in the office. He states that he "overdosed on Xanax and a bunch of other stuff". He was fairly vague and evasive during conversation. He had poor eye contact. Was concrete and monotone. He did appear to be disheveled in appearance. He claims that he also got drunk on liquor that night when he did it. He states that he doesn't usually drink alcohol. He states that he "snapped on life I guess". He was fairly guarded about what is going on with his life but did mention that he is going through a divorce which has been going on for about 2 months now. He states that his car recently broke down and hasn't been fixed yet. He states that he is feeling depressed hopeless and worthless at this time. He states that he is not having any anxiety and feels "numb". He states that he has been sleeping more, claims that his appetite is poor. Denying any paranoia at this time. Patient denies any suicidal or homicidal ideations intent or plan. At this time patient denies any auditory or visual hallucinations. Patient denies any flight of ideas racing thoughts and increased in goal directed behavior. Patient admits to using cigarettes daily and alcohol occasionally. PAST PSYCHIATRIC HISTORY: Patient states that he has a history of depression. Patient claims that he is currently on Effexor which is prescribed by his PCP. He states that previously he was on Zoloft. He states that he was previously psychiatrically hospitalized in 2018. Patient denies any psychiatric outpatient follow-up. Patient denies any history of suicide attempts in the past. PMH: As per medical H&P ALLERGIES: as per EMR CHEMICAL DEPENDENCY HISTORY: as per HPI FAMILY PSYCHIATRIC/SUBSTANCE USE HISTORY: denies SOCIAL HISTORY: Patient was born and raised in [facility]. He states that he completed up to ninth grade in school. He states it is currently however is going through divorce. He states he lives alone in a house. He has 2 kids. 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 He denies any legal history. MENTAL STATUS EXAM: General Appearance: Patient appears to be disheveled in appearance, dreads in his hair, stated age is alert, directable, and attempts to cooperate. Patient appears to have poor hygiene and grooming. Behavior: Patient is seated without any agitated behavior. Poor eye contact. Speech: Patient's speech is fluent and nonpressured. Weidman and monotone. Mood/Affect: Patient reports their mood is "numb" and also endorsing depression, affect is congruent and flat Suicidality/Homicidality: Patient denies having any homicidal ideation intent or plan. Denies any suicidal ideations intent or plan Perceptions: Patient denies any visual hallucinations and denies any auditory hallucinations Though content/process: [place]idman, paucity of content. He evasive and guarded. Memory and concentration: AOX3, grossly intact for the purposes of this session. Can spell "WORLD" backwards Judgment and insight: poor STRENGTHS/WEAKNESSES: strength is that patient is resilient. Weakness is that patient has poor judgment and is impulsive INTELLECT: average IMPRESSIONS: Major depressive disorder, recurrent, severe, without psychotic features Overdose of medications Nicotine dependence Alcohol abuse PLAN: -Patient is admitted under voluntary status to MHU for stabilization of psychiatric symptoms and safety. Patient has signed adult voluntary form and medication consent and is placed in patient's chart. -Medications : Will start patient on Effexor XR 75 mg daily for mood/anxiety. Patient was offered other antidepressants however once or remain on the same medication, will likely titrate up during hospitalization. -Ativan and Haldol PRN for agitation/aggression -[facility] protocol with Ativan PRN for ETOH withdrawal -Patient was counselled on substance abuse and desired to cut back on use -Patient was informed of the risks, benefits and side effects of the medication and patient verbally consented to taking the medications. Patient signed med consent form and was placed in chart. -Internal Medicine consult to perform medical evaluation and physical. -NRT - nicotine patch -SW on board for discharge planning. Encourage patient to participate in groups to work on coping skills." Hospital course: Upon admission to the unit patient was directable and agreeable to commence treatment and signed adult voluntary form. Patient got along well with other patients on the unit and followed unit protocol. Patient was compliant with the medications and denied any side effects throughout hospital course. Patient was started on Effexor XR 75 mg daily for depression/anxiety and was titrated to 150 mg daily in the morning. Patient spoke of his stressors and engaged in therapy both group and individual. Patient was also seen by medical team for history and physical exam, and was counselled on smoking cessation. Throughout the course of the hospitalization patient gradually improved with regards to mood, anxiety, sleep and returned back to their baseline level of functioning, became more future oriented with improved insight and judgment. On the day of discharge patient denied any suicidal or homicidal ideation, intent or plan denied any auditory or visual hallucinations. Patient endorsed wanting to live for his family. The patient denied any access to guns or weapons. Patient denied any paranoia and did not endorse any delusions. Patient does have a significant history of substance abuse was counseled on abstaining from all substances including alcohol and marijuana. Patient was offered however declined inpatient substance-abuse rehab. Patient was also counseled on the medications and need for regular compliance and was encouraged to follow-up with their outpatient appointment for mental health and also for primary care. Prior to discharge a family meeting will be arranged by social media job titles to answer any questions and ensure safety upon discharge. Mental status exam: General Appearance: Patient appears to be stated age, is alert, pleasant, and cooperative. Patient is in no acute distress and has improved hygiene and grooming Behavior: Patient is calmly seated without any agitated behavior. Speech: Patient's speech is fluent and non-pressured. Mood/Affect: Patient reports their mood is "good", affect is congruent and euthymic. Suicidality/Homicidality: Patient denies having any suicidal or homicidal ideation intent or plan. Perceptions: Patient denies any auditory or visual hallucinations. Though content/process: There is no evidence of any delusional thought content and thought process is linear and goal-directed. [more future oriented] Memory and concentration: AOX3, grossly intact for the purposes of this session. Can spell "WORLD" backwards correctly. Judgment and insight: Improved with guarded prognosis Impression: Major depressive disorder, recurrent, severe, without psychotic features Overdose of medications Nicotine dependence Alcohol abuse Plan: -Continue with discharge today as patient has improved and stabilized psychiatrically and is not currently an imminent threat to himself and/or others. Patient will remain at chronically elevated risk for harm to self and/or others due to his impulsivity and alcohol abuse. -Continue medications: Effexor XR 150 mg daily in the morning for depression/anxiety. -Patient was counseled on the need for medication compliance and appropriate follow-up at mental health and also primary care for medical issues. Patient verbalized understanding and agreed. -Social work to arrange for and conduct family meeting to ensure safety upon discharge and answer any questions/concerns. Social work also to arrange for patients follow up appointments for psychiatric care along with follow up with primary care provider. -Patient counseled on abstaining from recreational drugs and marijuana and alcohol. Was informed/educated on the adverse effects on their physical and mental health. Patient verbally agreed and understood. Patient was offered substance abuse treatment however declined at this time. -Patient was instructed to return to the hospital or seek immediate medical care if their psychiatric or medical symptoms do worsen or reoccur. Laboratory Results WBC 6.9 k/uL (3.8-10.6) 05/24/22 09:25 RBC 4.63 m/uL (4.30-5.90) 05/24/22 09:25 Hgb 13.2 gm/dL (13.0-17.5) 05/24/22 09:25 Hct 41.3 % (39.0-53.0) 05/24/22 09:25 MCV 89.3 fL (80.0-100.0) 05/24/22 09:25 MCH 28.6 pg (25.0-35.0) 05/24/22 09:25 MCHC 32.0 g/dL (31.0-37.0) 05/24/22 09:25 RDW 12.7 % (11.5-15.5) 05/24/22 09:25 Plt Count 252 k/uL (150-450) 05/24/22 09:25 MPV 8.9 05/24/22 09:25 Neutrophils % 69 % 05/24/22 09:25 Lymphocytes % 22 % 05/24/22 09:25 Monocytes % 4 % 05/24/22 09:25 Eosinophils % 3 % 05/24/22 09:25 Basophils % 1 % 05/24/22 09:25 Neutrophils # 4.7 k/uL (1.3-7.7) 05/24/22 09:25 Lymphocytes # 1.5 k/uL (1.0-4.8) 05/24/22 09:25 Monocytes # 0.3 k/uL (0-1.0) 05/24/22 09:25 Eosinophils # 0.2 k/uL (0-0.7) 05/24/22 09:25 Basophils # 0.0 k/uL (0-0.2) 05/24/22 09:25 Sodium 141 mmol/L (137-145) 05/24/22 09:25 Potassium 4.1 mmol/L (3.5-5.1) 05/24/22 09:25 Chloride 104 mmol/L (98-107) 05/24/22 09:25 Carbon Dioxide 23 mmol/L (22-30) 05/24/22 09:25 Anion Gap 14 mmol/L 05/24/22 09:25 BUN 15 mg/dL (9-20) 05/24/22 09:25 Creatinine 0.67 mg/dL (0.66-1.25) 05/24/22 09:25 Est GFR (CKD-EPI)AfAm >90 (>60 ml/min/1.73 sqM) 05/24/22 09:25 Est GFR (CKD-EPI)NonAf >90 (>60 ml/min/1.73 sqM) 05/24/22 09:25 Glucose 75 mg/dL (74-99) 05/24/22 09:25 Calcium 9.4 mg/dL (8.4-10.2) 05/24/22 09:25 Total Bilirubin 0.5 mg/dL (0.2-1.3) 05/24/22 09:25 AST 22 U/L (17-59) 05/24/22 09:25 ALT 17 U/L (4-49) 05/24/22 09:25 Alkaline Phosphatase 74 U/L (38-126) 05/24/22 09:25 Total Protein 7.1 g/dL (6.3-8.2) 05/24/22 09:25 Albumin 4.5 g/dL (3.5-5.0) 05/24/22 09:25 Triglycerides 99.70 mg/dL (0.00-149.00) 05/24/22 09:25 Cholesterol 136.00 mg/dL (0.00-200.00) 05/24/22 09:25 LDL Cholesterol, Calc 54.3 mg/dL (0.0-131.0) 05/24/22 09:25 VLDL Cholesterol, Calc 19.94 mg/dL (5.00-40.00) 05/24/22 09:25 HDL Cholesterol 61.80 mg/dL (40.00-60.00) H 05/24/22 09:25 Cholesterol/HDL Ratio 2.20 Ratio 05/24/22 09:25 Attending physician: Emiliano Zuniga MD Consults: 05/23/22 13:15 Consult Physician Routine Consulting Provider: Angie Cottrell Consult Reason/Comments: history and physical Do you want consulting provider notified?: Yes Primary care physician: Angie Cottrell Plan - Discharge Summary New Discharge Prescriptions: New Venlafaxine HCl ER [Effexor XR] 150 mg PO DAILY 30 Days #30 cap Discontinued Venlafaxine HCl ER [Effexor Xr] 75 mg PO QAM ALPRAZolam [Xanax] 0.25 mg PO HS oxyCODONE HCL/ACETAMINOPHEN [Percocet 5-325 mg] 1 tab PO Q4HR PRN 3 Days #18 tab PRN Reason: Pain Discharge Medication List Venlafaxine HCl ER [Effexor XR] 150 mg PO DAILY 30 Days #30 cap 05/28/22 [Rx] Follow up Appointment(s)/Referral(s): [facility] [Outside] - 05/30/22 3:00 pm (05/30 @ 15:00-16:00 Mylene Corral 06/11 @ 15:30-16:00 Nimco Barajas ) Angie Cottrell MD [Primary Care Provider] - 1 Week Patient Instructions/Handouts: Depression (DC) Activity/Diet/Wound Care/Special Instructions: Avoid the use of street drugs and alcohol. Take all prescriptions as prescribed. When you are in need of refills on your medications, please contact your medical provider and/or outpatient psychiatrist to have this done. Please go to scheduled outpatient appointment for aftercare treatment. If symptoms return or become worse, call the crisis line at and/or go to the nearest emergency room for evaluation. Discharge Disposition: HOME SELF-CARE
== END 2022-05-28 12:13 | disposition home or self-care (01) | DRG 885 ==
LOC: 3MHU 12:39
PROVIDERS: ADMIT Psychiatry & Neurology Psychiatry; ATTEND Psychiatry & Neurology Psychiatry
DX: F33.2 Major depressive disorder, recurrent severe without psychotic features (principal); F41.9 Anxiety disorder, unspecified; F17.210 Nicotine dependence, cigarettes, uncomplicated; Z71.6 Tobacco abuse counseling; Z71.89 Other specified counseling; F10.10 Alcohol abuse, uncomplicated; T42.4X2A Poisoning by benzodiazepines, intentional self-harm, initial encounter; Z63.5 Disruption of family by separation and divorce; Z60.2 Problems related to living alone; Z79.899 Other long term (current) drug therapy
CPT/HCPCS: 80053; 80061; 85025